=== PATIENT | male | born 1995 | race Caucasian/White ===

== ENCOUNTER 2023-04-17 21:55 | Outpatient (REF) | payer BC, SELFPAY ==
[2023-04-17 14:57] LABS: HCT 46.7 % (40.0-50.0); HGB 16.3 g/dL (13.5-17.5); MCH 29.4 pg (27.0-33.0); MCHC 34.9 % (32.0-36.0); MCV 84 fL (80-95); MPV 9.5 fL (8.0-11.0); Platelet Count 206 10^3/uL (130-400); RBC 5.55 10^6/uL (4.36-5.78); RDW-SD 36.4 fL; WBC 6.65 10^3/uL (4.4-10.8)
[2023-04-17 15:15] LABS: ALT 64 U/L (16-63); AST 29 U/L (15-37); Albumin 4.3 g/dL (3.4-5.0); Alkaline Phosphatase 86 U/L (46-116); Anion Gap 5.6 mmol/L (3-11); BUN 13 mg/dL (7-18); Bilirubin, Total 1.2 mg/dL (0.2-1.0); CO2 29.4 mmol/L (21.0-32.0); CREATININE 1.1 mg/dL (0.70-1.30); Calcium 9.2 mg/dL (8.5-10.1); Chloride 101 mmol/L (98-107); Estimated GFR 93.19 (mL/min/1.73m2); Glucose 118 mg/dL (74-106); Potassium 4.2 mmol/L (3.5-5.1); Sodium 136 mmol/L (136-145); Total Protein 8.4 g/dL (6.4-8.2)
[2023-04-18 11:29] LABS: Hepatitis C Ab w Rflx HCV PCR Negative (Negative)
== END 2023-04-17 21:56 | disposition home or self-care (01) ==
LOC: NCHCN 21:55
PROVIDERS: Visit Provider Internal Medicine
DX: F10.10 Alcohol abuse, uncomplicated (principal); K76.0 Fatty (change of) liver, not elsewhere classified; Z11.59 Encounter for screening for other viral diseases
CPT/HCPCS: 80053; 85027; 86803

== ENCOUNTER 2024-03-26 19:03 | Outpatient (REF) | payer BC, SELFPAY ==
[2024-03-26 21:24] LABS: Abs Immature Grans 0.04 10^3/uL (0.0-0.06); Absolute Basophil Count 0.02 10^3/uL (0.0-0.2); Absolute Eosinophil Count 0.08 10^3/uL (0.0-0.7); Absolute Monocyte Count 0.63 10^3/uL (0.1-0.8); Absolute Neutrophil Count 5.21 10^3/uL (1.2-6.7); Basophils % 0.2 %; Eosinophils % 0.9 %; HCT 45.1 % (40.0-50.0); HGB 15.7 g/dL (13.5-17.5); Immature Grans % 0.5 %; Lymphocytes % 30.3 %; MCH 29.4 pg (27.0-33.0); MCHC 34.8 % (32.0-36.0); MCV 85 fL (80-95); MPV 9.6 fL (8.0-11.0); Monocytes % 7.3 %; Neutrophils % 60.8 %; Platelet Count 220 10^3/uL (130-400); RBC 5.34 10^6/uL (4.36-5.78); RDW 12.3 % (11.8-14.1); RDW-SD 37.1 fL; WBC 8.58 10^3/uL (4.4-10.8)
[2024-03-26 21:34] LABS: ALT 63 U/L (16-63); AST 31 U/L (15-37); Albumin 4.3 g/dL (3.4-5.0); Alkaline Phosphatase 52 U/L (46-116); Anion Gap 9.1 mmol/L (3-11); BUN 17 mg/dL (7-18); Bilirubin, Total 1.7 mg/dL (0.2-1.0); CO2 26.9 mmol/L (21.0-32.0); CREATININE 1.1 mg/dL (0.70-1.30); Calcium 8.8 mg/dL (8.5-10.1); Chloride 101 mmol/L (98-107); Estimated GFR 92.61 (mL/min/1.73m2); Glucose 86 mg/dL (74-106); Potassium 4.1 mmol/L (3.5-5.1); Sodium 137 mmol/L (136-145)
[2024-03-26 21:38] LABS: Hemoglobin A1C 5.1 % (<5.7)
[2024-03-27 19:55] LABS: Hepatitis B Surface Ag Negative (Negative)
[2024-03-27 20:07] LABS: Hepatitis C Ab w Rflx HCV PCR Negative (Negative)
== END 2024-03-26 19:04 | disposition home or self-care (01) ==
LOC: LBN 19:03
PROVIDERS: Visit Provider Physician Assistant
DX: Z79.899 Other long term (current) drug therapy (principal); L40.0 Psoriasis vulgaris
CPT/HCPCS: 80053; 86803; 87340; 83036; 85025